=== PATIENT | female | born 1970 | race African-American/Black ===

== ENCOUNTER 2018-05-13 23:27 | Emergency (ER) | payer MEDICAID ==
[~2018-05-13] VITALS: Ht 167.6 cm; Wt 83.0 kg
[~2018-05-13 23:27] MED LIST: BUPR300T52 PO; HYDR-2412; OTC BENADRYL; OTC TYLENOL; PROP20TA7 PO; SERT100T PO; [UNRECOGNIZED DRUG - CODE]
[2018-05-14] MEDS ORDERED: KETOROLAC 30MG/ML VIAL IM ONE (01:30)
[2018-05-14] MEDS ORDERED: PROPRANOLOL HCL 20MG TABLET PO ONE (01:45)
[2018-05-14 02:26] LABS: BASOPHILS % 1.2 % (0.0-2.0); EOSINOPHILS % 2.7 % (0.0-5.0); HEMATOCRIT. 30.2 % (36.0-48.0); HEMOGLOBIN. 9.5 g/dL (12.0-16.0); LYMPHOCYTES % 22.8 % (20.0-50.0); MEAN CORPUSCULAR HEMOGLOBIN 22.5 pg (28.0-32.0); MEAN CORPUSCULAR VOLUME 71.4 fL (81.0-99.0); MEAN PLATELET VOLUME 8.3 fl (7.4-10.4); NEUTROPHILS % 66.3 % (40.0-76.0); PLATELET 447 x1000/uL (130-400); RED BLOOD CELL COUNT 4.23 mill/uL (4.2-5.4)
[2018-05-14 02:27] LABS: CLARITY URINE CLEAR (CLEAR); COLOR URINE YELLOW (YELLOW); KETONES URINE TRACE (NEGATIVE); LEUKOCYTE ESTERASE URINE 1+ (NEGATIVE); NITRITE URINE NEGATIVE (NEGATIVE); OCCULT BLOOD URINE TRACE (NEGATIVE); PROTEIN URINE 1+ (NEGATIVE); SPECIFIC GRAVITY URINE 1.031 (1.005-1.030)
[2018-05-14 02:29] LABS: CHLORIDE 109 mEq/L (98-107)
[2018-05-14 02:39] LABS: CREATINE KINASE 192 IU/L (26-192)
[2018-05-14 02:40] LABS: HCG SCREEN INDETERMINATE
[2018-05-14 04:34] LABS: *BENZODIAZEPINES SCREEN URINE NEGATIVE (NEGATIVE); *COCAINE SCREEN URINE NEGATIVE (NEGATIVE); METHADONE URINE SCREEN NEGATIVE (NEGATIVE); OPIATES URINE SCREEN NEGATIVE (NEGATIVE)
[2018-05-14 04:35] LABS: PHENCYCLIDINE URINE SCREEN NEGATIVE (NEGATIVE)
[2018-05-14 04:47] LABS: *AMPHETAMINES SCREEN URINE NEGATIVE (NEGATIVE); *BARBITURATES SCREEN URINE NEGATIVE (NEGATIVE); CANNABINOID URINE SCREEN PRESUMTIVE POSITIVE (NEGATIVE)
[2018-05-14 06:00] VITALS: BP 160/102
== END 2018-05-14 06:00 | disposition home or self-care (01) ==
LOC: ER 05-14 02:49
DX: S40.011A Contusion of right shoulder, initial encounter (principal); S50.12XA Contusion of left forearm, initial encounter; I10 Essential (primary) hypertension; X58.XXXA Exposure to other specified factors, initial encounter; Y93.89 Activity, other specified; Y92.89 Other specified places as the place of occurrence of the external cause; Y99.8 Other external cause status; F17.200 Nicotine dependence, unspecified, uncomplicated; F12.10 Cannabis abuse, uncomplicated; Z98.890 Other specified postprocedural states; Z88.0 Allergy status to penicillin; Z79.899 Other long term (current) drug therapy
CPT/HCPCS: 36415; 73030; 73060; 73090; 80048; 80305; 81003; 82550; 84702; 84703; 85025; 96372; 99285; J1885; Z7610

== ENCOUNTER 2018-05-17 15:23 | Emergency (ER) | payer MEDICAID ==
[~2018-05-17] VITALS: Ht 167.6 cm; Wt 70.0 kg
[2018-05-17] MEDS ORDERED: SODIUM CHLORIDE 0.9% 1,000 ML IV ONE (15:40)
[2018-05-17] MEDS ORDERED: LEVETIRACETAM 500MG PREMIX 100 ML IV ONE (15:45)
[2018-05-17 16:30] LABS: BASOPHILS % 0.7 % (0.0-2.0); EOSINOPHILS % 4.4 % (0.0-5.0); HEMATOCRIT. 27.4 % (36.0-48.0); HEMOGLOBIN. 8.9 g/dL (12.0-16.0); LYMPHOCYTES % 30.2 % (20.0-50.0); MEAN CORPUSCULAR VOLUME 71.2 fL (81.0-99.0); MEAN PLATELET VOLUME 8.3 fl (7.4-10.4); MONOCYTES % 7.2 % (2.0-8.0); NEUTROPHILS % 57.5 % (40.0-76.0); PLATELET 411 x1000/uL (130-400); RED BLOOD CELL COUNT 3.85 mill/uL (4.2-5.4); RED CELL DISTRIBUTION WIDTH 19.4 % (11.6-14.6)
[2018-05-17 16:36] LABS: CHLORIDE 109 mEq/L (98-107)
[2018-05-17 16:43] LABS: ETHANOL BLOOD < 10 mg/dL
[2018-05-17 16:46] LABS: AMMONIA 44 uMol/L (<32)
[2018-05-17 16:47] LABS: CREATINE KINASE 328 IU/L (26-192)
[2018-05-17 16:55] LABS: CARBAMAZEPINE < 0.5 ug/mL (4-12)
[2018-05-17 17:09] LABS: PHENOBARBITAL < 2.1 ug/mL (15.0-40.0); VALPROIC ACID < 3.0 ug/mL (50-100)
[2018-05-17 18:18] VITALS: BP 133/81
== END 2018-05-17 18:28 | disposition home or self-care (01) ==
LOC: ER 16:43
DX: R56.9 Unspecified convulsions (principal); Z91.19 Patient's noncompliance with other medical treatment and regimen; R07.89 Other chest pain; I10 Essential (primary) hypertension; F12.10 Cannabis abuse, uncomplicated; Z88.0 Allergy status to penicillin; Z98.890 Other specified postprocedural states; Z79.899 Other long term (current) drug therapy
CPT/HCPCS: 36415; 80053; 80156; 80165; 80184; 80185; 82140; 82550; 83880; 84443; 84484; 85025; 93005; 96365; 99285; G0482; J1953; J7030; Z7610

== ENCOUNTER 2018-05-20 23:48 | Inpatient (IN) | payer MEDICAID ==
[~2018-05-20] VITALS: Ht 167.6 cm; Wt 83.9 kg
[2018-05-21] MEDS ORDERED: SODIUM CHLORIDE 0.9% 1,000 ML IV ONE (00:58)
[2018-05-21] MEDS ORDERED: LEVETIRACETAM 500MG PREMIX 100 ML IV ONE (01:00)
[2018-05-21 01:53] LABS: CLARITY URINE CLEAR (CLEAR); COLOR URINE YELLOW (YELLOW); KETONES URINE NEGATIVE (NEGATIVE); LEUKOCYTE ESTERASE URINE TRACE (NEGATIVE); NITRITE URINE NEGATIVE (NEGATIVE); OCCULT BLOOD URINE NEGATIVE (NEGATIVE); PROTEIN URINE NEGATIVE (NEGATIVE); SPECIFIC GRAVITY URINE 1.006 (1.005-1.030); UROBILINOGEN URINE 0.2 E.U./dL (0.2-1.0)
[2018-05-21 01:59] LABS: BASOPHILS % 0.7 % (0.0-2.0); EOSINOPHILS % 3.9 % (0.0-5.0); HEMATOCRIT. 28.8 % (36.0-48.0); HEMOGLOBIN. 9.1 g/dL (12.0-16.0); LYMPHOCYTES % 28.3 % (20.0-50.0); MEAN CORPUSCULAR HEMOGLOBIN 22.9 pg (28.0-32.0); MEAN CORPUSCULAR VOLUME 72.3 fL (81.0-99.0); MEAN PLATELET VOLUME 8.4 fl (7.4-10.4); MONOCYTES % 7.3 % (2.0-8.0); NEUTROPHILS % 59.8 % (40.0-76.0); PLATELET 423 x1000/uL (130-400); RED BLOOD CELL COUNT 3.98 mill/uL (4.2-5.4); RED CELL DISTRIBUTION WIDTH 19.3 % (11.6-14.6)
[2018-05-21 02:06] LABS: *BARBITURATES SCREEN URINE NEGATIVE (NEGATIVE)
[2018-05-21 02:07] LABS: *AMPHETAMINES SCREEN URINE NEGATIVE (NEGATIVE); *COCAINE SCREEN URINE NEGATIVE (NEGATIVE); METHADONE URINE SCREEN NEGATIVE (NEGATIVE); OPIATES URINE SCREEN NEGATIVE (NEGATIVE); PHENCYCLIDINE URINE SCREEN NEGATIVE (NEGATIVE)
[2018-05-21 02:08] LABS: CANNABINOID URINE SCREEN NEGATIVE (NEGATIVE)
[2018-05-21 02:10] LABS: CHLORIDE 105 mEq/L (98-107)
[2018-05-21 02:14] LABS: *BENZODIAZEPINES SCREEN URINE PRESUMTIVE POSITIVE (NEGATIVE)
[2018-05-21 02:17] LABS: ETHANOL BLOOD < 10 mg/dL
[2018-05-21] MEDS ORDERED: SODIUM CHLORIDE 0.9% 1,000 ML IV SCH (03:02)
[2018-05-21 05:01] VITALS: BP 148/92
[2018-05-21] MEDS ORDERED: CLONIDINE 0.1MG TABLET PO PRN (06:45)
[2018-05-21] MEDS ORDERED: LORAZEPAM 2MG/ML CPJ IV PRN (06:45)
[2018-05-21] MEDS ORDERED: HYDROCODONE/ACETAMINOPHEN 10/325MG TABLET PO PRN (07:45)
[2018-05-21] MEDS ORDERED: ACETAMINOPHEN 325MG TABLET PO PRN (07:45)
[2018-05-21] MEDS ORDERED: HYDROCODONE/ACETAMINOPHEN 5/325MG TABLET PO PRN (07:45)
[2018-05-21] MEDS ORDERED: MAGNESIUM/ALUMINUM HYDROXIDE/SIMETHICONE 30ML UDC PO PRN (07:45)
[2018-05-21] MEDS ORDERED: ACETAMINOPHEN 650MG/20.3ML UDC GT PRN (07:45)
[2018-05-21] MEDS ORDERED: ACETAMINOPHEN 650MG SUPP PR PRN (07:45)
[2018-05-21] MEDS ORDERED: ONDANSETRON HCL 4MG/2ML VIAL IV PRN (07:45)
[2018-05-21 08:00] VITALS: BP 140/90
[2018-05-21] MEDS ORDERED: LEVETIRACETAM 500MG TABLET PO SCH (09:00)
[2018-05-21] MEDS: AMLODIPINE 5MG TABLET PO SCH (10:00)
[2018-05-21] MEDS: FOLIC ACID 1MG TABLET PO SCH (10:01)
[2018-05-21] MEDS: MULTIVITAMINS,THER W-MINERALS TABLET PO SCH (10:01)
[2018-05-21] MEDS: THIAMINE HCL 100MG TABLET PO SCH (10:01)
[2018-05-21] MEDS: LEVETIRACETAM 500MG TABLET PO SCH ×2 (10:04→21:04)
[2018-05-21 10:29] LABS: BASOPHILS % 0.7 % (0.0-2.0); EOSINOPHILS % 5.9 % (0.0-5.0); HEMATOCRIT. 25.5 % (36.0-48.0); HEMOGLOBIN. 8.2 g/dL (12.0-16.0); LYMPHOCYTES % 32.9 % (20.0-50.0); MEAN CORPUSCULAR HEMOGLOBIN 22.7 pg (28.0-32.0); MEAN CORPUSCULAR VOLUME 70.7 fL (81.0-99.0); MEAN PLATELET VOLUME 8.3 fl (7.4-10.4); MONOCYTES % 6.9 % (2.0-8.0); NEUTROPHILS % 53.6 % (40.0-76.0); PLATELET 390 x1000/uL (130-400); RED BLOOD CELL COUNT 3.61 mill/uL (4.2-5.4); RED CELL DISTRIBUTION WIDTH 19.3 % (11.6-14.6)
[2018-05-21 10:42] LABS: AMMONIA 24 uMol/L (<32)
[2018-05-21 11:54] LABS: CHLORIDE 112 mEq/L (98-107)
[2018-05-21 12:01] LABS: LDL CHOLESTEROL 113 mg/dL (5-100)
[2018-05-21 12:02] LABS: HDL CHOLESTEROL 43 mg/dL (40-59)
[2018-05-21 12:13] VITALS: BP 151/94
[2018-05-21] MEDS: SERTRALINE HCL 100MG TABLET PO SCH (15:00)
[2018-05-21] MEDS ORDERED: BUPROPION HCL 150MG TABLET XL 24HR PO SCH (15:00)
[2018-05-21 15:35] VITALS: BP 133/88
[2018-05-21 15:58] LABS: CREATINE KINASE 75 IU/L (26-192)
[2018-05-21 15:59] LABS: CREATINE KINASE MB FRACTION < 1.0 ng/mL (0.5-3.6)
[2018-05-21] MEDS ORDERED: DIPHENHYDRAMINE HCL/ZINC ACET 28 GM CREAM TOP PRN (16:30)
[2018-05-21 17:04] LABS: PROTHROMBIN TIME 10.2 sec (9.1-11.1)
[2018-05-21 20:00] VITALS: BP 124/81
[2018-05-21] MEDS: IPRATROPIUM/ALBUTEROL 0.5-3(2.5)MG/3ML NEB INH SCH (20:41)
[2018-05-21] MEDS: PROPRANOLOL HCL 20MG TABLET PO SCH (21:04)
[2018-05-21] MEDS: CLONIDINE 0.1MG TABLET PO SCH (21:04)
[2018-05-21] MEDS: DOCUSATE SODIUM 100MG CAPSULE PO SCH (23:00)
[2018-05-22] VITALS: BP 118/82
[2018-05-22 00:16] LABS: CREATINE KINASE 66 IU/L (26-192)
[2018-05-22 00:18] LABS: CREATINE KINASE MB FRACTION < 1.0 ng/mL (0.5-3.6)
[2018-05-22] MEDS: IPRATROPIUM/ALBUTEROL 0.5-3(2.5)MG/3ML NEB INH SCH ×4 (00:48→20:42)
[2018-05-22 04:00] VITALS: BP 108/74
[2018-05-22] MEDS: CLONIDINE 0.1MG TABLET PO SCH ×3 (05:40→21:01)
[2018-05-22] MEDS: THIAMINE HCL 100MG TABLET PO SCH (07:32)
[2018-05-22] MEDS: FOLIC ACID 1MG TABLET PO SCH (07:32)
[2018-05-22] MEDS: SERTRALINE HCL 100MG TABLET PO SCH (07:33)
[2018-05-22] MEDS: PROPRANOLOL HCL 20MG TABLET PO SCH ×2 (07:33→21:00)
[2018-05-22] MEDS: MULTIVITAMINS,THER W-MINERALS TABLET PO SCH (07:33)
[2018-05-22] MEDS: AMLODIPINE 5MG TABLET PO SCH (07:33)
[2018-05-22] MEDS: LEVETIRACETAM 500MG TABLET PO SCH ×2 (07:33→21:01)
[2018-05-22] MEDS: DOCUSATE SODIUM 100MG CAPSULE PO SCH ×2 (07:33→16:15)
[2018-05-22 07:48] LABS: BASOPHILS % 0.6 % (0.0-2.0); EOSINOPHILS % 6.9 % (0.0-5.0); HEMATOCRIT. 25.7 % (36.0-48.0); HEMOGLOBIN. 8.2 g/dL (12.0-16.0); LYMPHOCYTES % 38.2 % (20.0-50.0); MEAN CORPUSCULAR HEMOGLOBIN 22.8 pg (28.0-32.0); MEAN CORPUSCULAR VOLUME 71.1 fL (81.0-99.0); MEAN PLATELET VOLUME 8.2 fl (7.4-10.4); MONOCYTES % 7.6 % (2.0-8.0); NEUTROPHILS % 46.7 % (40.0-76.0); PLATELET 373 x1000/uL (130-400); RED BLOOD CELL COUNT 3.61 mill/uL (4.2-5.4); RED CELL DISTRIBUTION WIDTH 19.1 % (11.6-14.6)
[2018-05-22 07:59] LABS: CHLORIDE 106 mEq/L (98-107)
[2018-05-22 08:00] VITALS: BP 110/74
[2018-05-22 08:15] LABS: PHOSPHORUS 2.9 mg/dL (2.5-4.9)
[2018-05-22 08:19] LABS: T4 FREE 0.93 ng/dL (0.76-1.46)
[2018-05-22] MEDS ORDERED: DOCUSATE SODIUM 100MG CAPSULE PO SCH (09:00)
[2018-05-22 12:00] VITALS: BP 121/83
[2018-05-22 15:57] VITALS: BP 119/82
[2018-05-22 20:00] VITALS: BP 118/76
[2018-05-23] VITALS: BP 116/76
[2018-05-23] MEDS: IPRATROPIUM/ALBUTEROL 0.5-3(2.5)MG/3ML NEB INH SCH ×3 (02:37→12:00)
[2018-05-23 04:00] VITALS: BP 108/68
[2018-05-23] MEDS: CLONIDINE 0.1MG TABLET PO SCH ×2 (06:00→14:00)
[2018-05-23 07:37] LABS: BASOPHILS % 0.8 % (0.0-2.0); EOSINOPHILS % 6.3 % (0.0-5.0); HEMATOCRIT. 26.8 % (36.0-48.0); HEMOGLOBIN. 8.6 g/dL (12.0-16.0); LYMPHOCYTES % 32.8 % (20.0-50.0); MEAN CORPUSCULAR HEMOGLOBIN 22.8 pg (28.0-32.0); MEAN CORPUSCULAR VOLUME 71.1 fL (81.0-99.0); MEAN PLATELET VOLUME 8.2 fl (7.4-10.4); MONOCYTES % 9.6 % (2.0-8.0); NEUTROPHILS % 50.5 % (40.0-76.0); PLATELET 422 x1000/uL (130-400); RED BLOOD CELL COUNT 3.77 mill/uL (4.2-5.4); RED CELL DISTRIBUTION WIDTH 18.9 % (11.6-14.6)
[2018-05-23] MEDS: PROPRANOLOL HCL 20MG TABLET PO SCH (07:58)
[2018-05-23] MEDS: THIAMINE HCL 100MG TABLET PO SCH (07:58)
[2018-05-23] MEDS: FOLIC ACID 1MG TABLET PO SCH (07:58)
[2018-05-23] MEDS: SERTRALINE HCL 100MG TABLET PO SCH (07:58)
[2018-05-23] MEDS: LEVETIRACETAM 500MG TABLET PO SCH (07:58)
[2018-05-23] MEDS: AMLODIPINE 5MG TABLET PO SCH (07:58)
[2018-05-23] MEDS: MULTIVITAMINS,THER W-MINERALS TABLET PO SCH (07:58)
[2018-05-23] MEDS: DOCUSATE SODIUM 100MG CAPSULE PO SCH (07:58)
[2018-05-23 08:00] VITALS: BP 109/74
[2018-05-23 10:51] LABS: CHLORIDE 105 mEq/L (98-107)
[2018-05-23 10:59] LABS: PHOSPHORUS 3.8 mg/dL (2.5-4.9)
[2018-05-23] MEDS ORDERED: THIA100T72 PO (13:42)
[2018-05-23] MEDS ORDERED: FOLI-43 PO (13:42)
[2018-05-23] MEDS ORDERED: AMLO5TAB88 PO (13:42)
[2018-05-23] MEDS ORDERED: KEPP500 PO (13:42)
[2018-05-23 15:11] VITALS: BP 112/62
== END 2018-05-23 17:40 | disposition home or self-care (01) | DRG 53 ==
LOC: ER 23:48 → 6WST 05-21 03:03 → EDBEDREQ 05-21 03:09 → ENRESERV 05-21 04:04
PROVIDERS: ADMIT Internal Medicine; ATTEND Internal Medicine
PROC: 4A00X4Z Measurement of Central Nervous Electrical Activity, External Approach (ICD-10-PCS; principal; 2018-05-22)
DX: G40.909 Epilepsy, unspecified, not intractable, without status epilepticus (principal); D64.9 Anemia, unspecified; E11.9 Type 2 diabetes mellitus without complications; E78.5 Hyperlipidemia, unspecified; F32.9 Major depressive disorder, single episode, unspecified; I10 Essential (primary) hypertension; Z79.84 Long term (current) use of oral hypoglycemic drugs; Z98.891 History of uterine scar from previous surgery; Z79.899 Other long term (current) drug therapy; Z88.1 Allergy status to other antibiotic agents
CPT/HCPCS: 36415; 70450; 70551; 71045; 80048; 80053; 80061; 80305; 81003; 82140; 82550; 82553; 82607; 82746; 82962; 83036; 83605; 83690; 83735; 84100; 84439; 84443; 84481; 84484; 85025; 85610; 93005; 93970; 96361; 96365; 97162; 97166; 99285; G0482; J1953; J7030; J7620

== ENCOUNTER 2018-09-01 08:07 | Emergency (ER) | payer MEDICAID ==
[~2018-09-01] VITALS: Ht 167.6 cm; Wt 86.5 kg
[~2018-09-01 08:07] MED LIST changes: +AMLO5TAB88 PO; -BUPR300T52 PO; +FOLI-43 PO; -HYDR-2412; +KEPP500 PO; -OTC BENADRYL; -OTC TYLENOL; +THIA100T72 PO; -[UNRECOGNIZED DRUG - CODE]
[2018-09-01] MEDS ORDERED: QUET25TA MT (08:26)
[2018-09-01] MEDS ORDERED: DIPHENHYDRAMINE 50MG/ML VIAL IV ONE (10:15)
[2018-09-01] MEDS ORDERED: PROCHLORPERAZINE 10MG/2ML VIAL IV ONE (10:15)
[2018-09-01 12:30] VITALS: BP 148/78
== END 2018-09-01 15:39 | disposition home or self-care (01) ==
LOC: ER 10:10
DX: R51 Headache (principal); R11.0 Nausea; F32.9 Major depressive disorder, single episode, unspecified; I10 Essential (primary) hypertension; F10.20 Alcohol dependence, uncomplicated; Y90.9 Presence of alcohol in blood, level not specified; F17.200 Nicotine dependence, unspecified, uncomplicated; Z98.890 Other specified postprocedural states; Z79.899 Other long term (current) drug therapy; Z88.0 Allergy status to penicillin
CPT/HCPCS: 70450; 96374; 96375; 99284; J0780; J1200

== ENCOUNTER 2018-09-13 22:29 | Emergency (ER) | payer MEDICAID ==
[~2018-09-13] VITALS: Ht 170.2 cm; Wt 68.0 kg
[~2018-09-13 22:29] MED LIST changes: +QUET25TA MT
[2018-09-13] MEDS ORDERED: SODIUM CHLORIDE 0.9% 1,000 ML IV ONE (23:12)
[2018-09-13] MEDS ORDERED: LEVETIRACETAM 500MG TABLET PO ONE (23:15)
[2018-09-13 23:36] LABS: BASOPHILS % 0.6 % (0.0-2.0); EOSINOPHILS % 6.4 % (0.0-5.0); HEMATOCRIT. 33.6 % (36.0-48.0); HEMOGLOBIN. 10.5 g/dL (12.0-16.0); LYMPHOCYTES % 31.3 % (20.0-50.0); MEAN CORPUSCULAR HEMOGLOBIN 22.8 pg (28.0-32.0); MEAN CORPUSCULAR VOLUME 72.9 fL (81.0-99.0); MEAN PLATELET VOLUME 8.2 fl (7.4-10.4); NEUTROPHILS % 54.7 % (40.0-76.0); PLATELET 358 x1000/uL (130-400); RED CELL DISTRIBUTION WIDTH 24.5 % (11.6-14.6)
[2018-09-13 23:38] LABS: CHLORIDE 107 mEq/L (98-107)
[2018-09-13 23:43] LABS: HCG SCREEN NEGATIVE
[2018-09-13 23:49] LABS: CLARITY URINE CLOUDY (CLEAR); COLOR URINE YELLOW (YELLOW); KETONES URINE NEGATIVE (NEGATIVE); LEUKOCYTE ESTERASE URINE 2+ (NEGATIVE); NITRITE URINE NEGATIVE (NEGATIVE); OCCULT BLOOD URINE NEGATIVE (NEGATIVE); PROTEIN URINE 1+ (NEGATIVE); SPECIFIC GRAVITY URINE 1.016 (1.005-1.030); UROBILINOGEN URINE 0.2 E.U./dL (0.2-1.0)
[2018-09-14] MEDS ORDERED: CEFTRIAXONE 1 G PREMIX 50 ML IV ONE (00:15)
[2018-09-14 00:53] LABS: PLATELET ESTIMATE NORMAL
[2018-09-14 01:28] VITALS: BP 151/98
== END 2018-09-14 01:29 | disposition home or self-care (01) ==
LOC: ER 22:29
DX: G40.909 Epilepsy, unspecified, not intractable, without status epilepticus (principal); R55 Syncope and collapse; N12 Tubulo-interstitial nephritis, not specified as acute or chronic; F43.8 Other reactions to severe stress; D50.9 Iron deficiency anemia, unspecified; F10.21 Alcohol dependence, in remission; F41.9 Anxiety disorder, unspecified; F20.9 Schizophrenia, unspecified; F43.10 Post-traumatic stress disorder, unspecified; F17.200 Nicotine dependence, unspecified, uncomplicated; Z88.0 Allergy status to penicillin
CPT/HCPCS: 36415; 70450; 80053; 81003; 81025; 83605; 84484; 84703; 85025; 87077; 87086; 87186; 93005; 96361; 96365; 99284; J0696; J7030